=== PATIENT | male | born 1960 | race Caucasian/White ===

== ENCOUNTER 2022-04-04 08:45 | Emergency (ER) | payer OTHER ==
[~2022-04-04] VITALS: Ht 167.6 cm; Wt 88.9 kg
[2022-04-04] MEDS ORDERED: LIPITOR10 MG PO (09:01)
[2022-04-04] MEDS ORDERED: METFORMIN HCL1000 MG PO (09:01)
[2022-04-04] MEDS ORDERED: ZESTRIL5 MG PO (09:02)
[2022-04-04] MEDS ORDERED: EPIPEN 2-P0.3 MG/0.3 IM (09:12)
== END 2022-04-04 09:44 | disposition home or self-care (01) ==
LOC: ED 08:45
DX: T78.3XXA Angioneurotic edema, initial encounter (principal); E11.9 Type 2 diabetes mellitus without complications; Z88.5 Allergy status to narcotic agent; Z79.899 Other long term (current) drug therapy; Z79.84 Long term (current) use of oral hypoglycemic drugs
CPT/HCPCS: 96372; 99283; J0171; J7512